=== PATIENT | female | born 1955 | race Caucasian/White ===

== ENCOUNTER → 2016-06-17 | Outpatient (REF) | payer OTHER ==
[2016-06-17 13:14] LABS: BASO # 0.1 K/mm3 (0.0-0.2); EOS # 0.4 K/mm3 (0.0-0.50); EOS % 3.7 % (0.0-3.0); LARGE UNSTAINED CELL # 0.2 K/mm3 (0.0-0.4); LARGE UNSTAINED CELL % 2.3 % (0.0-4.0); LYMPH # 3.1 K/mm3 (1.5-4.5); LYMPH % 32.2 % (24.0-44.0); MEAN CORPUSCULAR HEMOGLOBIN 31.7 pg (27.0-33.0); MEAN CORPUSCULAR HGB CONC 33.5 g/dl (32.0-36.5); MEAN CORPUSCULAR VOLUME 94.5 fl (80.0-96.0); MONO # 0.6 K/mm3 (0.0-0.8); MONO % 5.6 % (0.0-5.0); NEUTROPHILS # 5.4 K/mm3 (1.8-7.7); NEUTROPHILS % 55.3 % (36.0-66.0); PLATELET COUNT, AUTOMATED 273 k/mm3 (150-450); RED CELL DISTRIBUTION WIDTH 12.3 % (11.5-14.5); WHITE BLOOD COUNT 9.8 K/mm3 (4.0-10.0)
[2016-06-17 13:20] LABS: FOLATE 12.4 NG/ML; VITAMIN B12 LEVEL 316 PG/ML
[2016-06-17 13:24] LABS: ALBUMIN 3.8 GM/DL (3.2-5.2); ALBUMIN/GLOBULIN RATIO 1.12 (1.00-1.93); ALKALINE PHOSPHATASE 73 U/L (45-117); ALT/SGPT 15 U/L (12-78); ANION GAP 7 MEQ/L (8-16); AST/SGOT 9 U/L (15-37); BILIRUBIN,TOTAL 0.5 MG/DL (0.2-1.0); BLOOD UREA NITROGEN 8 MG/DL (7-18); CALCIUM LEVEL 9.5 MG/DL (8.8-10.2); CARBON DIOXIDE LEVEL 31 MEQ/L (21-32); CHLORIDE LEVEL 104 MEQ/L (98-107); GLOMERULAR FILTRATION RATE > 60.0 (>45); GLUCOSE, FASTING 129 MG/DL (80-110); POTASSIUM SERUM 4.6 MEQ/L (3.5-5.1); SODIUM LEVEL 142 MEQ/L (136-145); TOTAL PROTEIN 7.2 GM/DL (6.4-8.2)
[2016-06-17 14:01] LABS: ERYTHROCYTE SEDIMENTATION RATE 5 mm/hr (0-30)
[2016-06-21 10:40] LABS: ALBUMIN 4.25 GM/DL (3.29-5.55); GAMMA GLOBULIN % 13.4 % (11.1-18.8)
[2016-06-22 00:07] LABS: VITAMIN E LEVEL 13.5 mg/L (6.5-21.5)
== END | disposition home or self-care (01) ==
LOC: M LABNEURO 12:26
PROVIDERS: ATTEND Psychiatry & Neurology Neurology
DX: G62.9 Polyneuropathy, unspecified (principal); R41.82 Altered mental status, unspecified

== ENCOUNTER 2017-01-07 11:01 | Emergency (ER) | payer OTHER ==
[~2017-01-07] VITALS: Ht 160 cm; Wt 74.1 kg
[2017-01-07] MEDS ORDERED: LISI-538 (11:12)
[2017-01-07] MEDS ORDERED: TRET0.02 (11:12)
[2017-01-07] MEDS ORDERED: ALPR0.5T3 (11:12)
[2017-01-07] MEDS ORDERED: AMPHET/DEXTR (11:12)
[2017-01-07] MEDS ORDERED: AMMO12LO (11:12)
[2017-01-07] MEDS ORDERED: LR 1,000 ML IV SCH (12:00)
[2017-01-07] MEDS ORDERED: GASTROGRAFIN SOLUTION 30ML (Q9963) As Ordered ONE (12:09)
[2017-01-07 12:18] LABS: BASO # 0.1 K/mm3 (0.0-0.2); BASO % 0.4 % (0.0-1.0); EOS # 0.2 K/mm3 (0.0-0.50); EOS % 1.4 % (0.0-3.0); LARGE UNSTAINED CELL # 0.2 K/mm3 (0.0-0.4); LARGE UNSTAINED CELL % 1.1 % (0.0-4.0); LYMPH # 2.5 K/mm3 (1.5-4.5); LYMPH % 13.3 % (24.0-44.0); MEAN CORPUSCULAR HEMOGLOBIN 32.1 pg (27.0-33.0); MEAN CORPUSCULAR VOLUME 91.7 fl (80.0-96.0); MONO # 0.7 K/mm3 (0.0-0.8); MONO % 4.2 % (0.0-5.0); NEUTROPHILS # 13.6 K/mm3 (1.8-7.7); NEUTROPHILS % 79.5 % (36.0-66.0); PLATELET COUNT, AUTOMATED 255 k/mm3 (150-450); WHITE BLOOD COUNT 17.1 K/mm3 (4.0-10.0)
[2017-01-07] MEDS ORDERED: GASTROGRAFIN SOLUTION 30ML (Q9963) PO ONE ×2 (12:30)
[2017-01-07 12:54] LABS: ALBUMIN 3.7 GM/DL (3.2-5.2); ALBUMIN/GLOBULIN RATIO 0.93 (1.00-1.93); ALKALINE PHOSPHATASE 66 U/L (45-117); ALT/SGPT 18 U/L (12-78); ANION GAP 10 MEQ/L (8-16); AST/SGOT 16 U/L (15-37); BILIRUBIN,TOTAL 0.7 MG/DL (0.2-1.0); BLOOD UREA NITROGEN 23 MG/DL (7-18); CALCIUM LEVEL 9.1 MG/DL (8.8-10.2); CARBON DIOXIDE LEVEL 27 MEQ/L (21-32); CHLORIDE LEVEL 103 MEQ/L (98-107); CREATININE FOR GFR 0.77 MG/DL (0.55-1.02); GLOMERULAR FILTRATION RATE > 60.0 (>45); GLUCOSE, FASTING 154 MG/DL (80-110); POTASSIUM SERUM 3.6 MEQ/L (3.5-5.1); SODIUM LEVEL 140 MEQ/L (136-145); TOTAL PROTEIN 7.7 GM/DL (6.4-8.2)
[2017-01-07] MEDS ORDERED: ISOVUE-370 76% 100ML VIAL (Q9967) As Ordered ONE (13:49)
[2017-01-07] MEDS ORDERED: OMEP20CA3 PO (14:46)
[2017-01-07 14:57] VITALS: BP 158/86
--- NOTE | 2017-01-08 07:57 | ECGEPIP ---
Stationary ECG Study [facility] - ED Test Date: 2017-01-07 Pat Name: ANDREA RIVERA Department: Room: - Gender: F Communications Writer: jordin MINB: 1955 Requested By: PHYLLIS Gipson PA-C Order Number: [id number] Reading MD: Joe Smalls Measurements Intervals Dewar Rate: 100 P: 57 NH: 143 QRS: 17 QRSD: 90 T: 33 QT: 358 QTc: 462 Interpretive Statements SINUS TACHYCARDIA INC. RBBB POSSIBLE LEFT ATRIAL ENLARGEMENT NONSPECIFIC ST & T-WAVE ABNORMALITY NO PRIORS Electronically Signed On 01-08-2017 7:57:19 EDT by Joe Smalls
--- NOTE | 2017-01-09 16:12 | REP ---
SOFT-TISSUE NECK: 01/07/2017. Clinical history: Esophageal spasm. Findings: Two views were performed. I do not see any significant prevertebral swelling. Nasopharyngeal airway, oropharynx, and hypopharynx are intact. The epiglottis and folds are unremarkable. There is no foreign body evident. No subglottic stenosis. Cervical spondylosis at C5-6 and C6-7 noted with disc space narrowing, anterior osteophytes. Impression: 1. No evidence of airway compromise from nasopharynx to the subglottic trachea and without foreign body. Epiglottis and folds normal. 2. Cervical spondylosis C5-6 and C6-7. No significant prevertebral swelling. Signed by Francis Vazquez MD 01/09/2017 05:12 P
--- NOTE | 2017-01-10 09:32 | REP ---
CT CHEST WITH CONTRAST: 01/07/2017 CLINICAL HISTORY: Bariatric surgery, rule out leak. TECHNIQUE: The patient received a bolus of 100 mL Isovue 370 and scanning through the chest with coronal and sagittal reconstructions. FINDINGS: No prior study. The lung shaikh are well inflated. There is minor dependent atelectatic change but no infiltrate, effusion, nodule or mass. There is also minor subsegmental atelectasis along the major fissure in the lingula and left base. No pleural effusion, pleural plaque or pleural-based mass. Heart is not grossly enlarged but there is some left atrial enlargement. Fullness of the lower esophageal segment may reflect a small amount of hiatal hernia or reflux. There is no pathologic sized mediastinal or hilar adenopathy. The aorta is calcified at the arch but without aneurysm or dissection. The main right and left pulmonary arteries and the mediastinum are without filling defect. Lobar and segmental arteries are not well opacified with this technique. There is no axillary or supraclavicular mass. Bone windows show degenerative changes in the spine with a T8 anterior wedge compression deformity without any associated paraspinal hematoma. This is old. A few small marginal osteophytes with no other compression deformities. Visualized ribs are intact. The sternum, manubrium, clavicles, humeral heads and scapula without definite fracture. Visualized ribs intact. IMPRESSION: 1. There is no CT evidence of infiltrate, pleural effusion, pleural-based mass or pulmonary nodules. 2. No aortic aneurysm or dissection. No central pulmonary emboli. 3. There is no pathologic sized mediastinal or hilar adenopathy. 4. Suspect small hiatal hernia in this patient with gastric bypass, some fullness of the lower esophagus could also be secondary to some reflux. Signed by Francis Vazquez MD 01/10/2017 10:27 A
--- NOTE | 2017-01-10 09:39 | REP ---
CT ABDOMEN PELVIS WITH IV AND ORAL CONTRAST: 01/07/2017 CLINICAL HISTORY: Bariatric surgery, rule out leak. There are no comparison studies. The patient did have a chest CT today. TECHNIQUE: The patient received oral Gastrografin mixture 10 mL in 290 mL of flavored water for two doses per our bowel contrast protocol and then bolus of 100 mL of Isovue 370 and scanning through the abdomen and pelvis with coronal and sagittal reconstructions of the abdomen and pelvis. FINDINGS: CT ABDOMEN: Some fullness at the GE junction suggests small hiatal hernia or some reflux. The gastric bypass surgery shows staple lines intact. I do not see evidence of an anastomotic leak. Proximal small bowel loops are fluid filled. Most of the oral contrast is into the distal small bowel and is seen throughout the colon to the mid left colon. On lung window review of all CT slices, there is no perforation or free air evident in the abdomen or pelvis. Colon shows stool and gas scattered throughout without signs of colitis or diverticulitis. The liver and spleen are not enlarged. There are multiple tiny layered calcified gallstones. The largest of these would be about 6 mm in diameter. I do not see a dilatation of the common duct in the mehreen hepatis or pancreatic head. Pancreatic duct intact and the remainder of the pancreas is unremarkable. Adrenal glands are normal. Kidneys show function without obstruction, mass or stone. There aorta has atherosclerotic calcification without aneurysm or dissection. No periaortic or other retroperitoneal pathologic sized lymphadenopathy. Proximal small bowel loops are fluid filled. One small bowel loop is seen crossing the midline on image 83 with long smooth narrowing, but no inflammatory change adjacent to it. There are short segment of normal caliber small bowel. It has another extension of least 10 cm. The aorta is fairly narrow in caliber. Oral contrast is seen in it and is readily passed beyond it. There is abdominal wall hernia with only omental fat within it above the umbilicus. This is just slightly to the right of midline. PELVIS: Bone windows show lumbar spine with L5-S1 endplates nearly fused. The other lumbar and lower thoracic levels grossly intact. I see some facet arthropathy lower lumbar spine but no spondylolysis or compression deformity. Pelvic bones, hips, sacrum, SI joints and symphysis pubis are unremarkable. Bladder only partially filled. Uterus absent. Vaginal cuff intact. Distal left colon, sigmoid and rectum intact. Distal small bowel loops unremarkable. The cecum in the right lower quadrant shows no evidence of inflammatory change or adenopathy adjacent. Appendix grossly intact. No ventral or inguinal hernia in the pelvic portion of the abdominal wall. No inguinal adenopathy. IMPRESSION: 1. Status post gastric bypass with the vertical banded gastroplasty procedure but no evidence of a leak, abscess, perforation or free air. There is a small hiatal hernia suggested. 2. Colon without colitis or diverticulitis. Small bowel shows one segment at the distal small bowel, which has a fairly lengthy narrow caliber dilating up to normal caliber and then again mildly stenotic but oral contrast readily passes through it and there were no inflammatory changes although there may be some spasm. 3. The solid organs in the upper abdomen including liver, spleen, kidneys, adrenal glands and pancreas are unremarkable. There are small layered calcified gallstones in the gallbladder; the largest about 5 mm. 4. Degenerative disc changes at L5-S1 and old wedging at T8, mild. No acute bony finding or other acute intra-abdominal/pelvic abnormality. Signed by Francis Vazquez MD 01/10/2017 10:29 A
== END 2017-01-07 15:01 | disposition home or self-care (01) ==
LOC: M ED 11:01
DX: K44.9 Diaphragmatic hernia without obstruction or gangrene (principal); Z72.0 Tobacco use
CPT/HCPCS: 70360; 71260; 74177; 80053; 82550; 82553; 83690; 85025; 93000; 96360; 96361; 99284; Q9963; Q9967

== ENCOUNTER → 2017-09-20 | Outpatient (REF) | payer OTHER ==
[2017-09-20 20:07] LABS: FREE T4 1.18 NG/DL (0.76-1.46)
[2017-09-20 20:08] LABS: ESTIMATED AVERAGE GLUCOSE 240 MG/DL (60-110)
[2017-09-22 08:03] LABS: FOLATE 8.5 NG/ML; VITAMIN B12 LEVEL 546 PG/ML
== END ==
LOC: M LABNEURO 13:24
DX: M54.5 Low back pain (principal); R51 Headache
CPT/HCPCS: 82746

== ENCOUNTER → 2017-12-20 | Outpatient (REF) | payer OTHER ==
[2017-12-20 19:51] LABS: ESTIMATED AVERAGE GLUCOSE 209 MG/DL (60-110); HEMOGLOBIN A1c 8.9 %
== END ==
LOC: M LABNEURO 13:22
DX: E11.9 Type 2 diabetes mellitus without complications (principal)

== ENCOUNTER → 2018-04-03 | Outpatient (REF) | payer OTHER ==
[2018-04-03 14:03] LABS: ESTIMATED AVERAGE GLUCOSE 266 MG/DL (60-110); HEMOGLOBIN A1c 10.9 %
[2018-04-03 14:05] LABS: TOTAL 25(OH) VITAMIN D 24.7 NG/ML (30.0-100.0)
== END ==
LOC: M LABNEURO 12:03
DX: R53.83 Other fatigue (principal); E11.9 Type 2 diabetes mellitus without complications; E55.9 Vitamin D deficiency, unspecified

== ENCOUNTER → 2018-05-25 | Outpatient (REF) | payer OTHER ==
[~2018-05-25] MED LIST: ALPR0.5T3; AMMO12LO; AMPHET/DEXTR; LISI-538; OMEP20CA3 PO; TRET0.02
[2018-05-25 13:24] LABS: FOLATE 3.1 NG/ML; VITAMIN B12 LEVEL > 2000 PG/ML
[2018-05-25 13:35] LABS: HEMOGLOBIN A1c 12.1 %
== END ==
LOC: M LABNEURO 10:01
PROVIDERS: ATTEND Psychiatry & Neurology Neurology
DX: G62.9 Polyneuropathy, unspecified (principal)

== ENCOUNTER → 2021-11-03 | Outpatient (CLI) | payer MEDICARE, OTHER ==
[~2021-11-03] MED LIST changes: -LISI-538; +LISI20TA33; +OMEP1CAP73 PO; -OMEP20CA3 PO
[2021-11-03 13:41] LABS: BASO # 0.1 10^3/uL (0.0-0.2); BASO % 0.8 % (0.0-1.0); EOS # 0.2 10^3/uL (0.0-0.5); EOS % 2.2 % (0.0-3.0); HEMATOCRIT 45.6 % (36.0-47.0); HEMOGLOBIN 15.1 g/dl (12.0-15.5); LYMPH # 2.6 10^3/uL (1.5-5.0); LYMPH % 27.4 % (24.0-44.0); MEAN CORPUSCULAR HEMOGLOBIN 31.8 pg (27.0-33.0); MEAN CORPUSCULAR HGB CONC 33.1 g/dl (32.0-36.5); MONO # 0.6 10^3/uL (0.0-0.8); MONO % 6.5 % (2.0-8.0); NEUTROPHILS % 62.8 % (36.0-66.0); PLATELET COUNT, AUTOMATED 238 10^3/uL (150-450); RED BLOOD COUNT 4.75 10^6/uL (4.00-5.40); WHITE BLOOD COUNT 9.6 10^3/uL (4.0-10.0)
[2021-11-03 13:46] LABS: ALBUMIN 3.6 GM/DL (3.2-5.2); ALT/SGPT 20 U/L (12-78); BILIRUBIN,TOTAL 0.5 MG/DL (0.2-1.0); BLOOD UREA NITROGEN 9 MG/DL (7-18); CARBON DIOXIDE LEVEL 28 MEQ/L (21-32); CHLORIDE LEVEL 103 MEQ/L (98-107); GLOMERULAR FILTRATION RATE > 60.0 (>45); GLUCOSE, FASTING 347 MG/DL (70-100); POTASSIUM SERUM 4.8 MEQ/L (3.5-5.1); SODIUM LEVEL 137 MEQ/L (136-145); TOTAL PROTEIN 6.9 GM/DL (6.4-8.2)
[2021-11-03 14:05] LABS: APPEARANCE, URINE HAZY (CLEAR); BACTERIA, URINE AUTO NEGATIVE (NEGATIVE); BILIRUBIN, URINE AUTO NEGATIVE (NEGATIVE); BLOOD, URINE BLOOD NEGATIVE (NEGATIVE); COLOR, URINE YELLOW (YELLOW); GLUCOSE, URINE (UA) AUTO 3+ mg/dL (NEGATIVE); KETONE, URINE AUTO TRACE mg/dL (NEGATIVE); LEUKOCYTE ESTERASE, URINE AUTO 2+ (NEGATIVE); NITRITE, URINE AUTO NEGATIVE (NEGATIVE); PROTEIN, URINE AUTO NEGATIVE (NEGATIVE); RBC, URINE AUTO 5 /HPF (0-3); SQUAMOUS EPITHELIAL CELL UR AU 1 /HPF (0-6); UROBILINOGEN, URINE AUTO 0.2 mg/dL (0.0-2.0); WBC, URINE AUTO 132 /HPF (0-3)
== END ==
LOC: M PLALAB 10:55
PROVIDERS: ATTEND Psychiatry & Neurology Neurology
DX: G47.33 Obstructive sleep apnea (adult) (pediatric) (principal); M54.50 Low back pain, unspecified; Z79.899 Other long term (current) drug therapy

== ENCOUNTER → 2021-11-25 | Outpatient (REF) | payer MEDICARE ==
[2021-11-25 13:39] LABS: APPEARANCE, URINE HAZY (CLEAR); BACTERIA, URINE AUTO NEGATIVE (NEGATIVE); BILIRUBIN, URINE AUTO NEGATIVE (NEGATIVE); BLOOD, URINE BLOOD NEGATIVE (NEGATIVE); COLOR, URINE YELLOW (YELLOW); GLUCOSE, URINE (UA) AUTO 3+ mg/dL (NEGATIVE); KETONE, URINE AUTO 1+ mg/dL (NEGATIVE); LEUKOCYTE ESTERASE, URINE AUTO 2+ (NEGATIVE); MUCUS, URINE SMALL (NEGATIVE); NITRITE, URINE AUTO NEGATIVE (NEGATIVE); PROTEIN, URINE AUTO NEGATIVE (NEGATIVE); RBC, URINE AUTO 6 /HPF (0-3); SPECIFIC GRAVITY URINE AUTO 1.022 (1.002-1.035); SQUAMOUS EPITHELIAL CELL UR AU 4 /HPF (0-6); UROBILINOGEN, URINE AUTO 0.2 mg/dL (0.0-2.0); WBC, URINE AUTO 117 /HPF (0-3)
== END ==
LOC: M SMT 12:42
PROVIDERS: ATTEND Nurse Practitioner Women's Health
DX: R32 Unspecified urinary incontinence (principal)

== ENCOUNTER → 2022-01-26 | Outpatient (REF) | payer MEDICARE ==
[2022-01-26 17:29] LABS: APPEARANCE, URINE MANUAL CLEAR (CLEAR); COLOR, URINE MANUAL YELLOW (YELLOW)
[2022-01-26 17:31] LABS: BILIRUBIN, URINE MANUAL NEGATIVE (NEGATIVE); BLOOD URINE MANUAL NEGATIVE (NEGATIVE); GLUCOSE, URINE (UA) MANUAL NEGATIVE (NEGATIVE); KETONE, URINE MANUAL NEGATIVE (NEGATIVE); LEUKOCYTE ESTERASE, URINE MAN POSITIVE (NEGATIVE); NITRITE, URINE MANUAL NEGATIVE (NEGATIVE); PROTEIN, URINE MANUAL NEGATIVE (NEGATIVE); SPECIFIC GRAVITY,URINE MANUAL 1.015 (1.002-1.035); UROBILINOGEN, URINE MANUAL NORMAL (NORMAL)
[2022-01-26 17:58] LABS: RBC, URINE 0-1 /hpf (0-3); SQUAMOUS EPITHELIAL CELL URINE SMALL AMOUNT /hpf (SMALL AMT); WBC, URINE 15-20 /hpf (0-3)
[2022-01-26 17:59] LABS: BACTERIA, URINE SMALL AMOUNT; HYALINE CAST, URINE NONE SEEN /lpf (0-1); MUCUS, URINE SMALL AMOUNT (NEGATIVE)
== END ==
LOC: M SMT 17:07
PROVIDERS: ATTEND Nurse Practitioner Women's Health
DX: Z87.440 Personal history of urinary (tract) infections (principal)